=== PATIENT | male | born 1965 | race Caucasian/White ===

== ENCOUNTER 2016-08-23 13:42 | Emergency (ER) | payer OTHER ==
[~2016-08-23] VITALS: Ht 185.4 cm; Wt 136.1 kg
[~2016-08-23 13:42] MED LIST: AMBIEN10 M1 PO; AMOXICILLIN500 M3 PO; BUSPIRONE HCL10 M1 PO; CIPRO500 M1 PO; DOXYCYCLINE HY100 M2 PO; FLEXERIL10 MG PO; FLOMAX0.4 M1 PO; FOLIC ACID 1 MG PO; FOLIC ACID1 M1 PO; FUROSEMIDE40 M1 PO; GLIMEPIRIDE2 MG PO; IBU-6600 MG PO; IBUPROFEN800 M1 PO; KEFLEX500 MG PO; LASIX40 M1 PO; LEXAPRO10 M1 PO; LISINOPRIL10 MG PO; LISINOPRIL20 M1 PO; LOPRESSOR 12.12.5 MG PO; LORAZEPAM1 M1 PO; LORAZEPAM1 MG PO; MELATONIN5 M5 PO; METFORMIN ER500 MG PO; METFORMIN HCL500 M3 PO; METFORMIN HYD1000 M1 PO; METOPROLOL TART25 M1 PO; ONE DAILY MULT1 EAC2 PO; PERCOCET 325 MG1 TA2 PO; PERCOCET 5-3251 EACH PO; PRINIVIL10 MG PO; Theragran Vitamins PO; VICODIN5-300 PO; VITAMIN B1100 MG PO; XARELTO15 M1 PO; ZOFRAN ODT4 M1 PO
[2016-08-23 13:47] VITALS: BP 133/83
--- NOTE | 2016-08-23 14:15 | RADIOLOGY REPORT ---
EXAMINATION: XR ANKLE, RIGHT CLINICAL INFORMATION: Pain status post fall this morning COMPARISON: None TECHNIQUE: AP, lateral, and mortise views of the right ankle. FINDINGS: No evidence of acute fracture or dislocation. The ankle mortise is congruent. Corticated ossific density adjacent to the tip of the medial malleolus suggests chronic injury. There is lucency along the talar dome medially suggestive of subchondral cyst formation in a patient of this age. No ankle joint effusion. The soft tissues are unremarkable. IMPRESSION: No evidence of acute fracture or malalignment. Evidence of chronic injury. Prominent cyst formation at the medial aspect of the talar dome.
[2016-08-23] MEDS ORDERED: NORCO 5-325 TA1 EACH PO (14:29)
--- NOTE | 2016-08-23 14:29 | ED UPPER/LOWER EXTREMITY COMPL ---
History of Present Illness General Chief Complaint: Foot or Ankle Injury Stated Complaint: R ANKLE PAIN Source: patient Exam Limitations: no limitations Vital Signs & Intake/Output Vital Signs & Intake/Output Vital Signs Date Time Temp Pulse Resp B/P Pulse O2 O2 Flow FiO2 Ox Delivery Rate 08/23 1347 98.7 98 18 133/83 98 Room Air Allergies Coded Allergies: No Known Allergies (03/24/16) Reconcile Medications Amoxicillin 500 MG TABLET 1 TAB PO TID ABSCESS Buspirone HCl 10 MG TABLET 1 TAB PO BID MENTAL HEALTH (Reported) Doxycycline Hyclate 100 MG CAPSULE 1 CAP PO BID ABSCESS Escitalopram Oxalate (Lexapro) 10 MG TABLET 1 TAB PO DAILY anxiety Folic Acid 1 MG TABLET 1 TAB PO DAILY SUPPLEMENT (Reported) Glimepiride 2 MG TABLET 1 TAB PO DAILY DIABETES Hydrocodone/Acetaminophen ([facility] 5-325 Tablet) 5 MG-325 MG TABLET 1 TAB PO TID PRN PAIN Lisinopril 20 MG TABLET 1 TAB PO DAILY BLOOD PRESSURE Lorazepam 1 MG TABLET 1 MG PO DAILY ALCOHOL DETOXIFICATION TAKE 1 TAB ON 01/02/2016 EVENING AND 1 TAB ON 01/03/2016 AND THEN STOP Melatonin 5 MG CAPSULE 1 CAP PO 2200 Sleeping Metoprolol Tartrate 25 MG TABLET 1 TAB PO BID BLOOD PRESSURE Multivitamin (One Daily Multivitamin) 1 EACH TABLET 1 TAB PO DAILY VITAMINS Naproxen (Naprosyn) 500 MG TABLET 1 TAB PO BID PRN pain/inflammation Oxycodone HCl/Acetaminophen (Percocet 5-325 MG Tablet) 1 EACH TABLET 1 TAB PO Q6P PRN pain 5-10/10 Oxycodone HCl/Acetaminophen (Percocet 5-325 MG Tablet) 1 EACH TABLET 1 TAB PO Q4-6 PRN PAIN Rivaroxaban (Xarelto) 15 MG TABLET 1 TAB PO BID THROMBIS Zolpidem Tartrate (Ambien) 10 MG TABLET 1 TAB PO QPMP sleep and anxiety ( Reported) Triage Note: 50 Y/O MALE C/O R ANKLE PAIN S/P FALL ON ICE THIS AM. TOOK IBUPROPHEN 800MG 3 HOURS AGO WITH NO RELIEF. PADMINI IN PLACE. XRAY ORDERED DECLINES OFFER OF ADDITIONAL MEDS Triage Nurses Notes Reviewed? yes HPI: 50-year-old male with severe throbbing right ankle pain mostly lateral but also has medial pain after an inversion injury that occurred prior to arrival when he slipped on the ice earlier this morning. He applied ice and took 800 mg ibuprofen with some relief but states he has a very hard time walking on the ankle due to the pain and he is limping badly. He has a previous history of severe sprain of the ankle approximately 15 years ago. No other injuries from fall today. (KALI VELOZ) Past History Travel History Traveled to [place] past 21 day No Medical History Any Pertinent Medical History? see below for history Neurological: NONE EENT: NONE Cardiovascular: hypertension Respiratory: obstructive sleep apnea Gastrointestinal: NONE Hepatic: NONE Renal: nephrolithiasis, COLON ABCESS Musculoskeletal: fracture, RIBS Psychiatric: alcohol dependence Endocrine: diabetes Blood Disorders: DVT (left upper extremity) Cancer(s): NONE POKER IN/Reproductive: NONE Other Medical Hx: HTN History of MRSA: No History of VRE: No History of CDIFF: No Surgical History Surgical History: ureteral stent, hernia surgery Left shoulder surgery, partial colon resection due to polyps Psychosocial History Who do you live with Patient/Self Services at Home None What is your primary language Burkinan Tobacco Use: Quit >30 days ago Family History Family History, If Any: MOTHER FH: hyperlipidemia FATHER FH: diabetes mellitus Relation not specified for: *No pertinent family history Hx Contributory? No (KALI VELOZ) Review of Systems Review of Systems Constitutional: Reports: see HPI. EENTM: Reports: no symptoms. Respiratory: Reports: no symptoms. Cardiovascular: Reports: no symptoms. Gastrointestinal/Abdominal: Reports: no symptoms. Genitourinary: Reports: no symptoms. Musculoskeletal: Reports: see HPI. Skin: Reports: no symptoms. Neurological/Psychological: Reports: no symptoms. Hematologic/Endocrine: Reports: no symptoms. Immunological: Reports: no symptoms. All Other Systems: Reviewed and Negative (KALI VELOZ) Physical Exam Physical Exam General Appearance: well developed/nourished Comments: Well-developed well-nourished no apparent distress. HEENT: Atraumatic, extraocular motion intact Neck: Supple, no lymphadenopathy Back: Nontender Respiratory: No respiratory distress Extremities: No edema, full range of motion Neuro: Alert and oriented x3 Psych: Mood affect normal, normal memory normal judgment. Skin: Warm and dry, no rash on exposed skin Right Ankle with moderate tenderness laterally over the lateral ligaments. Positive medial tenderness as well is mild. Range of motion is near full but somewhat limited due to pain. No instability is noted. Skin is intact, mild swelling laterally. The foot is neurovascularly intact with sensation and motor grossly intact. There is no foot tenderness or fifth metatarsal tenderness. Able to move all toes. (KALI VELOZ) Progress Differential Diagnosis: arterial insufficiency, cellulitis, CHF, compartment syndrome, contusion, dislocation, DVT, fracture, gout, septic arthritis, sprain, tendon injury Plan of Care: Orders Procedure Date/time Status Durable Medical Equipment 08/23 1425 Active Diagnostic Imaging: Viewed by Me: Radiology Read. Discussed w/RAD: Radiology Read. Radiology Impression: PATIENT: JULIA JOYNER PRESENT AGE: 50 PATIENT ACCOUNT NO: [id number] : 64 LOCATION: [facility] ORDERING PHYSICIAN: NOMI WHITE MD SERVICE DATE: 08/23/16-1347 EXAM TYPE: RAD - XRY- ANKLE 3 OR MORE VIEWS R EXAMINATION: XR ANKLE, RIGHT CLINICAL INFORMATION: Pain status post fall this morning COMPARISON: None TECHNIQUE: AP, lateral, and mortise views of the right ankle. FINDINGS: No evidence of acute fracture or dislocation. The ankle mortise is congruent. Corticated ossific density adjacent to the tip of the medial malleolus suggests chronic injury. There is lucency along the talar dome medially suggestive of subchondral cyst formation in a patient of this age. No ankle joint effusion. The soft tissues are unremarkable. IMPRESSION: No evidence of acute fracture or malalignment. Evidence of chronic injury. Prominent cyst formation at the medial aspect of the talar dome. DICTATED BY: VANDANA COLEMAN,ALIZA DATE/TIME DICTATED:08/23/161409 MACHINE STAPLER:KATIA DATE/TIME TRANSCRIBED:08/23/16 Comments: Discussed patient results x-rays, he'll be placed in an equalizer boot and weightbearing as tolerated recommended rest ice compression and elevation, he is no longer on anticoagulation and can take NSAIDs for his pain as well. He is taking Vicodin for pain. The boot was applied by myself, neurovascular intact right lower extremity. He also has an presumed medial talar dome osteochondral defect from an old injury. He needs follow-up with orthopedics for this, as discussed with him and he understands and agrees with plan. (KALI VEOLZ) Departure Departure Disposition: HOME OR SELF CARE Condition: Stable Clinical Impression Primary Impression: High ankle sprain of right lower extremity Qualifiers: Encounter type: initial encounter Qualified Code: S93.431A - Sprain of tibiofibular ligament of right ankle, initial encounter Secondary Impressions: Other cyst of bone, right ankle and foot Referrals: PATIENT HAS NO PRIMARY CARE DR (PCP/Family) ANUSHA COLEMAN,DEBBIE Braun Additional Instructions: Rest, ice, compression (padmini wrap), elevation. Use the boot when you are up and walking around Follow-up with orthopedist this week for evaluation of the ankle sprain and also of the cyst that was seen in your talus Departure Forms: Customer Survey General Discharge Information Prescriptions: Current Visit Scripts Hydrocodone/Acetaminophen ([facility] 5-325 Tablet) 1 TAB PO TID PRN PAIN #10 TAB Naproxen (Naprosyn) 1 TAB PO BID PRN pain/inflammation #30 TAB (CJ RENDON,KALI) PA/ENDOSCOPY SUPPORT SPECIALIST Co-Sign Statement Statement: ED Attending supervision documentation- [] I saw and evaluated the patient. I have also reviewed all the pertinent lab results and diagnostic results. I agree with the findings and the plan of care as documented in the PA's/ENDOSCOPY SUPPORT SPECIALIST's documentation. x I have reviewed the ED Record and agree with the PA's/ENDOSCOPY SUPPORT SPECIALIST's documentation. [] Additions or exceptions (if any) to the PAs/ENDOSCOPY SUPPORT SPECIALIST's note and plan are summarized below: [] (CINDY COLEMAN,NOMI)
[2016-08-23] MEDS ORDERED: NAPROSYN500 M1 PO (14:33)
== END 2016-08-23 15:22 ==
LOC: ERH 13:42
DX: S93.401A Sprain of unspecified ligament of right ankle, initial encounter (principal); M85.671 Other cyst of bone, right ankle and foot; W00.0XXA Fall on same level due to ice and snow, initial encounter
CPT/HCPCS: 73610-RT

== ENCOUNTER 2017-11-11 20:31 | Observation (INO) | payer OTHER ==
[~2017-11-11 20:31] MED LIST changes: +ACAMPROSATE CA333 M1 PO; +ACIDOPHILUS1 EACH PO; +ATIVAN1 M1 PO; +AUGMENTIN 875-1 EACH PO; +BACTRIM DS TAB1 EACH PO; +CLOPIDOGREL75 M1 PO; +DAILY MULTIPLE1 EACH PO; +NAPROSYN500 M1 PO; +NORCO 5-325 TA1 EACH PO; +ROZEREM8 M1 PO; +THIAMINE HCL100 M1 PO
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
[2017-11-11 21:14] LABS: ABSOLUTE BASOPHIL COUNT 0 /CUMM (0.0-0.2); ABSOLUTE EOSINOPHIL COUNT 0.2 /CUMM (0.0-0.7); ABSOLUTE GRANULOCYTE CT 3.2 /CUMM (1.4-6.5); ABSOLUTE LYMPH COUNT 1.9 /CUMM (1.2-3.4); ABSOLUTE MONOCYTE COUNT 0.4 /CUMM (0.10-0.60); BASOPHIL % 0.6 % (0.0-2.0); EOSINOPHIL % 3.1 % (0-5); GRANULOCYTE % 56.4 % (42.2-75.2); MEAN CORPUSCULAR HGB 31.1 PG (27.0-31.0); MEAN CORPUSCULAR HGB CONC 35.1 G/DL (33.0-37.0); MEAN CORPUSCULAR VOLUME 88.4 FL (80.0-94.0); MEAN PLATELET VOLUME 6.9 FL (7.4-10.4); PLATELET COUNT 194 /CUMM (130-400); RBC DISTRIBUTION WIDTH 14.5 % (11.5-14.5); RED BLOOD CELL CT 5.21 /CUMM (4.70-6.10); WHITE BLOOD CELL COUNT 5.8 /CUMM (4.8-10.8)
--- NOTE | 2017-11-11 23:20 | RADIOLOGY REPORT ---
EXAMINATION: XR PORTABLE CHEST CLINICAL INFORMATION: Shortness of breath. COPD. COMPARISON: 03/12/2017 TECHNIQUE: Portable frontal view of the chest was obtained. FINDINGS: There is persistent elevation of the right hemidiaphragm. There is no focal consolidation, edema, or effusion. No pneumothorax. The cardiomediastinal silhouette is within normal limits. No acute osseous abnormality. IMPRESSION: No acute pulmonary findings.
--- NOTE | 2017-11-11 23:40 | CT SCAN REPORT ---
EXAMINATION: CT HEAD WITHOUT CONTRAST CT FACIAL BONES WITHOUT CONTRAST CT CERVICAL SPINE WITHOUT CONTRAST CLINICAL INFORMATION: Altered mental status. Fall. COMPARISON: CT head 11/20/2015. CT cervical spine 11/20/2015 TECHNIQUE: Imaging was performed from the skull base to vertex without intravenous administration of contrast. In addition, helical noncontrast CT imaging was acquired through the cervical spine and facial bones and source images were reviewed along with axial reconstructions and sagittal and coronal MPRs. DLP: 1257.24 +725.65 mGy-cm FINDINGS: HEAD: No intracranial mass, hemorrhage, or midline shift is visualized. The ventricles and sulci are age-appropriate. No extra-axial collections are identified. FACIAL BONES: There is no evidence of an acute facial bone fracture. The orbits are unremarkable in appearance. There is a rim of lobular mucosal thickening in the right and left maxillary sinuses. CERVICAL SPINE: There is no evidence of acute cervical spine fracture. There is degenerative spondylosis of cervical spine with disc height narrowing and endplate spurring C5-C6 and C6-C7 disc levels. No pre- or paravertebral soft tissue abnormality is identified. Limited assessment of the lung apices is unremarkable. IMPRESSION: 1. No acute intracranial process or discrete facial bone fracture. 2. No acute cervical spine fracture or traumatic subluxation.
[2017-11-12 01:37] VITALS: BP 144/98
[2017-11-12 03:24] VITALS: BP 126/75
[2017-11-12 06:10] VITALS: BP 120/83
[2017-11-12 08:35] VITALS: BP 117/80
[2017-11-12 10:46] VITALS: BP 123/71
[2017-11-12] MEDS ORDERED: FOLIC ACID1 M1 PO (11:44)
[2017-11-12] MEDS ORDERED: B-1100 MG PO (11:44)
[2017-11-12] MEDS ORDERED: ATIVAN1 M2 PO (11:44)
== END 2017-11-12 11:55 ==
LOC: ERH 20:31 → ERHI 11-12 02:51
PROVIDERS: Emergency Medicine
DX: F10.230 Alcohol dependence with withdrawal, uncomplicated (principal); I10 Essential (primary) hypertension; G47.33 Obstructive sleep apnea (adult) (pediatric); E11.9 Type 2 diabetes mellitus without complications; Z79.01 Long term (current) use of anticoagulants; Z86.718 Personal history of other venous thrombosis and embolism; Z79.899 Other long term (current) drug therapy; Z87.442 Personal history of urinary calculi
CPT/HCPCS: 6090; 71045; 80307; G0378; G0480

== ENCOUNTER 2018-03-28 10:27 | Emergency (ER) | payer OTHER ==
[~2018-03-28] VITALS: Ht 185.4 cm; Wt 144.2 kg
[~2018-03-28 10:27] MED LIST changes: +ATIVAN1 M2 PO; +B-1100 MG PO
[2018-03-28 10:30] VITALS: BP 133/83
== END 2018-03-28 13:31 | disposition admitted as inpatient to this hospital (09) ==
LOC: ERH 10:27
DX: L02.214 Cutaneous abscess of groin (principal)